=== PATIENT | female | born 1995 | race African-American/Black ===

== ENCOUNTER 2025-04-03 09:49 | Emergency (ER) | payer OTHER ==
[~2025-04-03] VITALS: Ht 149.9 cm; Wt 56.4 kg
[2025-04-03 09:50] VITALS: TEMP 97.9
[2025-04-03 10:10] LABS: COVID AG,FIA SOURCE NASAL SWAB
[2025-04-03 10:13] LABS: PLATELET COUNT (AUTO) 300 K/uL (150-450); RED BLOOD CELL COUNT(AUTO) 4.35 MIL/uL (4.00-5.20); RED CELL DISTRIBUTION WIDTH 14.9 % (11.5-14.5); WHITE BLOOD COUNT (AUTO) 7.3 K/uL (4.5-11.0)
[2025-04-03 10:24] LABS: CALCIUM, TOTAL 9.4 mg/dL (8.8-10.5); CREATININE 0.93 mg/dL (0.60-1.30); GLOMERULAR FILTR. RATE CALC > 60 mL/min (>60); GLUCOSE,RANDOM 96 mg/dL (70-110); SODIUM SERUM 137 mmol/L (136-145); UREA NITROGEN, BLOOD 17 mg/dL (7-18)
[2025-04-03 10:34] LABS: TROPONIN I-HIGH SENSITIVITY 6 ng/L (<51)
[2025-04-03 10:38] LABS: SARS-COV2 (COVID) ANTIGEN,FIA Negative (Negative)
[2025-04-03 10:39] LABS: INFLUENZA TYPE A NEGATIVE FOR TYPE A (NEGATIVE); INFLUENZA TYPE B NEGATIVE FOR TYPE B (NEGATIVE)
[2025-04-03 10:50] VITALS: PULSE 89; RESP 20; RESP 21; O2SAT 99
[2025-04-03] MEDS: KETOROLAC TROMETHAMINE 30 MG/ML VIAL IVP ONE (11:13)
[2025-04-03] MEDS ORDERED: MAGNESIUM SULFATE 2 GM in DEXTROSE 5%-WATER 100 ML IV ONE (11:15)
[2025-04-03] MEDS: MAGNESIUM SULFATE 2 GM in DEXTROSE 5%-WATER 50 ML IV ONE (11:32)
[2025-04-03] MEDS ORDERED: SODIUM CHLORIDE 0.9% 100 ML ONE (11:36)
[2025-04-03] MEDS ORDERED: IOHEXOL 350 MG/ML 100 ML VIAL ONE (11:36)
[2025-04-03 15:37] VITALS: BP 117/73; PULSE 77; RESP 20; O2SAT 100
== END 2025-04-03 15:38 | disposition home or self-care (01) ==
LOC: EMS 09:49
DX: R06.02 Shortness of breath (principal); R07.89 Other chest pain; R60.0 Localized edema; Z20.822 Contact with and (suspected) exposure to COVID-19
CPT/HCPCS: 99285; 96365; 71275; 93971; 71045; 96366; 96375; 87426; 80048; 83735; 83880; 84484; 84703; 85025; 85379; 87804; 36415; 94660; 93005; J1885; Q9967; J7060; J3475; J7050; 94760